=== PATIENT | female | born 1950 | race Caucasian/White ===

== ENCOUNTER → 2017-02-10 | Outpatient (REF) | payer MEDICARE, OTHER ==
[~2017-02-10] MED LIST: /ACETCOD3T OR; /PANT40TA OR; ACET65TA OR; ALBUTEROL INH; DULO20CA OR; HYDR25TA6 OR; IMIT50TA OR; LUNE2TAB OR; SOMA350T OR; TRAM50TA2 OR; WARF1TAB OR; XANA0.25 OR
== END ==
LOC: M LAB REF 17:42
PROVIDERS: ATTEND Nurse Practitioner Adult Health
DX: E83.52 Hypercalcemia (principal)

== ENCOUNTER → 2017-02-25 | Outpatient (CLI) | payer MEDICARE, OTHER ==
[~2017-02-25] MED LIST changes: +ALBU17IN; +ATEN25TA PO; +LUNE3TAB36 PO; +XARE20TA
--- NOTE | 2017-02-25 13:59 | REP ---
PARATHYROID NUCLEAR SCINTIGRAPHY WITH SPECT : HISTORY: Hyperparathyroidism. TECHNIQUE: 25.6 mCi of technetium 99m sestamibi is injected and 15-minute and 3-hour delayed planar images are acquired. In addition, a SPECT acquisition is acquired and axial coronal and sagittal imaging planes are reformatted. SCINTIGRAPHIC FINDINGS: The initial 15-minute images demonstrate normal salivary gland and thyroid uptake. The 3-hour delayed images demonstrate washout of the thyroid uptake with no retained soft-tissue neck or mediastinal abnormal focus to suggest a parathyroid adenoma. SPECT images show no additional finding. IMPRESSION: Negative parathyroid nuclear scintigraphy with SPECT imaging. Signed by Juan Nielsen MD 02/25/2017 03:34 P
== END ==
LOC: M RAD 09:19
PROVIDERS: ATTEND Nurse Practitioner Adult Health
DX: E21.3 Hyperparathyroidism, unspecified (principal)
CPT/HCPCS: 78070; 78803; A9500

== ENCOUNTER 2017-03-12 14:26 | Emergency (ER) | payer MEDICARE, OTHER ==
[~2017-03-12] VITALS: Ht 177.8 cm; Wt 100.0 kg
[~2017-03-12 14:26] MED LIST changes: -ALBU17IN; -ATEN25TA PO; -LUNE3TAB36 PO; -XARE20TA
[2017-03-12] MEDS ORDERED: XARE20TA (14:57)
[2017-03-12] MEDS ORDERED: ALBU17IN (14:57)
[2017-03-12] MEDS ORDERED: METOPROLOL 5 MG/5 ML VIAL IV SCH (15:00)
--- NOTE | 2017-03-12 15:17 | REP ---
PORTABLE CHEST X-RAY: Sitting AP view. HISTORY: Chest pain. COMPARISON STUDY: May 10, 2013. FINDINGS: EKG monitoring electrodes overlie the chest. The patient is status post ventral cervical discectomy and fusion plating. Heart is not felt to be enlarged. Pulmonary vasculature is not increased. Pleural angles are sharp. Lung breen are clear. IMPRESSION: No acute disease. Signed by Juan Nielsen MD 03/12/2017 04:19 P
[2017-03-12] MEDS ORDERED: LUNE3TAB36 PO (15:28)
[2017-03-12] MEDS ORDERED: ALPRAZolam 0.25 MG TAB PO ONE (16:00)
[2017-03-12 16:11] LABS: BASO # 0.1 K/mm3 (0.0-0.2); BASO % 1.4 % (0.0-1.0); EOS # 0.1 K/mm3 (0.0-0.50); EOS % 1.1 % (0.0-3.0); INR 1.02; LARGE UNSTAINED CELL # 0.2 K/mm3 (0.0-0.4); LARGE UNSTAINED CELL % 1.9 % (0.0-4.0); LYMPH # 2.3 K/mm3 (1.5-4.5); LYMPH % 24.6 % (24.0-44.0); MEAN CORPUSCULAR HEMOGLOBIN 30.9 pg (27.0-33.0); MEAN CORPUSCULAR HGB CONC 33.9 g/dl (32.0-36.5); MEAN CORPUSCULAR VOLUME 91.2 fl (80.0-96.0); MONO # 0.5 K/mm3 (0.0-0.8); MONO % 5.5 % (0.0-5.0); NEUTROPHILS # 5.8 K/mm3 (1.8-7.7); NEUTROPHILS % 65.5 % (36.0-66.0); PLATELET COUNT, AUTOMATED 306 k/mm3 (150-450); RED CELL DISTRIBUTION WIDTH 13.1 % (11.5-14.5); WHITE BLOOD COUNT 8.8 K/mm3 (4.0-10.0)
[2017-03-12 16:22] LABS: ANION GAP 11 MEQ/L (8-16); BLOOD UREA NITROGEN 15 MG/DL (7-18); CALCIUM LEVEL 10.2 MG/DL (8.8-10.2); CARBON DIOXIDE LEVEL 27 MEQ/L (21-32); CHLORIDE LEVEL 97 MEQ/L (98-107); FREE T4 1.02 NG/DL (0.76-1.46); GLOMERULAR FILTRATION RATE 59.1 (>45); GLUCOSE, FASTING 112 MG/DL (80-110); POTASSIUM SERUM 3.3 MEQ/L (3.5-5.1); SODIUM LEVEL 135 MEQ/L (136-145)
[2017-03-12] MEDS ORDERED: POTASSIUM CHLORIDE 10 MEQ SR TABLET PO ONE (17:00)
[2017-03-12] MEDS ORDERED: ISOVUE-370 76% 100ML VIAL (Q9967) As Ordered ONE (17:35)
[2017-03-12] MEDS ORDERED: ATEN25TA PO (20:18)
[2017-03-12 20:39] VITALS: BP 123/75
--- NOTE | 2017-03-12 21:35 | REP ---
CT ANGIOGRAM CHEST: HISTORY: Chest pain. CONTRAST: Isovue-370 100 mL. There are no filling defects in the main , right and left pulmonary arteries or their branches. A calcified granuloma is present in the left lower lobe. The right lung is clear. There is no pleural effusion. There is no mediastinal mass. A 2 cm hypodensity is present in the liver. This most likely represents a cyst. A 2.7 cm cyst is present in the right kidney. IMPRESSION: There is no pulmonary embolism. Signed by Fernando Fuentes MD 03/13/2017 07:56 A
--- NOTE | 2017-03-12 21:36 | ECGEPIP ---
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
--- NOTE | 2017-03-12 21:37 | ECGEPIP ---
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
== END 2017-03-12 21:12 | disposition home or self-care (01) ==
LOC: M ED 14:26 → EDBD 14:26 → M ED 21:12
DX: I48.91 Unspecified atrial fibrillation (principal); Z86.711 Personal history of pulmonary embolism; E11.9 Type 2 diabetes mellitus without complications; I10 Essential (primary) hypertension; D64.9 Anemia, unspecified; K21.9 Gastro-esophageal reflux disease without esophagitis; M54.5 Low back pain; A69.20 Lyme disease, unspecified; Z79.02 Long term (current) use of antithrombotics/antiplatelets; Z79.899 Other long term (current) drug therapy
CPT/HCPCS: 71010; 71275; 80048; 82550; 82553; 83880; 84439; 84443; 84484; 85025; 85610; 85730; 93005; 93041; 94760; 96374; 99285; Q9967

== ENCOUNTER → 2017-03-27 | Outpatient (CLI) | payer MEDICARE, OTHER ==
[~2017-03-27] MED LIST changes: +ALBU17IN; +ATEN25TA PO; +LUNE3TAB36 PO; +XARE20TA
== END ==
LOC: M LAB 11:31
PROVIDERS: ATTEND Internal Medicine Cardiovascular Disease
DX: R07.2 Precordial pain (principal)

== ENCOUNTER → 2017-04-14 | Outpatient (REF) | payer MEDICARE, OTHER ==
[2017-04-17 00:07] LABS: Lyme Disease IgG/IgM Antibodie <0.91 ISR (0.00-0.90); Lyme Disease IgM Ab Quantitati <0.80 index (0.00-0.79)
== END ==
LOC: M LAB REF 17:30
PROVIDERS: ATTEND Nurse Practitioner Adult Health
DX: Z11.8 Encounter for screening for other infectious and parasitic diseases (principal)

== ENCOUNTER → 2017-06-18 | Outpatient (REF) | payer MEDICARE, OTHER | LOC: M LAB REF 16:25 | PROVIDERS: ATTEND Nurse Practitioner Adult Health | DX: E21.3 Hyperparathyroidism, unspecified (principal) ==

== ENCOUNTER → 2018-04-08 | Outpatient (CLI) | payer MEDICARE, OTHER ==
[~2018-04-08] MED LIST changes: -/ACETCOD3T OR; -/PANT40TA OR; -ACET65TA OR; -ALBU17IN; -ALBUTEROL INH; -ATEN25TA PO; -DULO20CA OR; -HYDR25TA6 OR; -IMIT50TA OR; +ISOVUE-370 76% 100ML VIAL (Q9967) As Ordered; -LUNE2TAB OR; -LUNE3TAB36 PO; -SOMA350T OR; -TRAM50TA2 OR; -WARF1TAB OR; -XANA0.25 OR; -XARE20TA
== END ==
LOC: M RAD 16:22
DX: R06.02 Shortness of breath (principal); I77.810 Thoracic aortic ectasia; J84.10 Pulmonary fibrosis, unspecified; I51.7 Cardiomegaly; K76.89 Other specified diseases of liver
CPT/HCPCS: Q9967

== ENCOUNTER → 2018-05-12 | Outpatient (REF) | payer MEDICARE, OTHER ==
[2018-05-12 20:32] LABS: LIPASE 74 U/L (73-393)
[2018-05-12 20:32] LABS: AMYLASE 42 U/L (25-115)
[2018-05-17 00:08] LABS: ANTI-SACCHAROMYCES CEREV. IgA <20.0 Units (0.0-24.9); ANTI-SACCHAROMYCES CEREV. IgG 32.3 Units (0.0-24.9)
== END ==
LOC: M LAB REF 18:54
DX: R10.9 Unspecified abdominal pain (principal); R19.7 Diarrhea, unspecified
CPT/HCPCS: 82150

== ENCOUNTER 2018-06-28 10:02 | Day surgery (SDC) | payer MEDICARE, OTHER ==
[2018-06-28] MEDS: NS 1,000 ML IV (06:00)
[2018-06-28] MEDS ORDERED: fentaNYL 100 MCG/2 ML INJECTION (J3010) As Ordered (12:20)
[2018-06-28] MEDS ORDERED: PROPOFOL 200 MG/20 ML VIAL As Ordered ×2 (12:21→12:56)
[2018-06-28] MEDS ORDERED: LIDOCAINE 2% INJ 100 MG/5 ML SDV (FOR ANES.) As Ordered (12:21)
== END 2018-06-28 14:00 | disposition home or self-care (01) ==
LOC: M OPP 10:02
DX: D12.3 Benign neoplasm of transverse colon (principal); K63.5 Polyp of colon; K57.30 Diverticulosis of large intestine without perforation or abscess without bleeding; R10.30 Lower abdominal pain, unspecified; R19.7 Diarrhea, unspecified; R63.4 Abnormal weight loss; K22.8 Other specified diseases of esophagus; K44.9 Diaphragmatic hernia without obstruction or gangrene; K31.89 Other diseases of stomach and duodenum; I10 Essential (primary) hypertension; D64.9 Anemia, unspecified; D41.9 Neoplasm of uncertain behavior of unspecified urinary organ; K21.9 Gastro-esophageal reflux disease without esophagitis; G43.909 Migraine, unspecified, not intractable, without status migrainosus; I48.91 Unspecified atrial fibrillation; M12.9 Arthropathy, unspecified; Z79.891 Long term (current) use of opiate analgesic; Z79.899 Other long term (current) drug therapy; Z90.89 Acquired absence of other organs; Z88.5 Allergy status to narcotic agent; Z90.711 Acquired absence of uterus with remaining cervical stump
CPT/HCPCS: 45385

== ENCOUNTER → 2019-01-05 | Outpatient (CLI) | payer MEDICARE, OTHER ==
[~2019-01-05] MED LIST changes: +ACET1TAB16 OR; +ACET1TAB16 PO; +ACET65TA OR; +ALBU17IN; +ALBUTEROL INH; +ATEN25TA PO; +ATEN50TA2 PO; +ATOR40TA75 PO; +CYMB1CAP4 OR; +HYDR12CA PO; +HYDR25TA6 OR; +IMIT50TA OR; +IMIT50TA PO; -ISOVUE-370 76% 100ML VIAL (Q9967) As Ordered; +LIDO5CRE6 EX; +LUNE2TAB OR; +LUNE3TAB36 PO; +MULT1TAB10 PO; +ONDA4SOL PO; +PANT40TA3 PO; +PROT1TAB2 OR; +SOMA350T OR; +SOMA350T PO; +TRAM50TA2 OR; +VENTAER INH; +VITA200016 PO; +VOLT1GEL15 TOP; +WARF1TAB OR; +XANA0.25 OR; +XANA0.25 PO; +XARE20TA; +XARE20TA PO
[2019-01-05 10:22] LABS: HEMATOCRIT 46.5 % (36.0-47.0); HEMOGLOBIN 15.2 g/dl (12.0-15.5); MEAN CORPUSCULAR HEMOGLOBIN 30.9 pg (27.0-33.0); MEAN CORPUSCULAR HGB CONC 32.7 g/dl (32.0-36.5); MEAN CORPUSCULAR VOLUME 94.5 fl (80.0-96.0); PLATELET COUNT, AUTOMATED 229 10^3/uL (150-450); RED BLOOD COUNT 4.92 10^6/uL (4.00-5.40); WHITE BLOOD COUNT 6.6 10^3/uL (4.0-10.0)
[2019-01-05 10:52] LABS: ALBUMIN 4.4 GM/DL (3.2-5.2); ALT/SGPT 30 U/L (12-78); BILIRUBIN,TOTAL 0.6 MG/DL (0.2-1.0); BLOOD UREA NITROGEN 20 MG/DL (7-18); CALCIUM LEVEL 9.3 MG/DL (8.8-10.2); CARBON DIOXIDE LEVEL 32 MEQ/L (21-32); CHLORIDE LEVEL 98 MEQ/L (98-107); CHOLESTEROL LEVEL 209 MG/DL (<200); CHOLESTEROL RISK RATIO 2.548 (<5); CREATININE FOR GFR 0.98 MG/DL (0.55-1.30); GLOMERULAR FILTRATION RATE > 60.0 (>45); GLUCOSE, FASTING 110 MG/DL (70-100); HDL CHOLESTEROL 82 MG/DL (>40); LDL CHOLESTEROL 102 MG/DL (<100); NON-HDL-C 127 MG/DL; POTASSIUM SERUM 3.6 MEQ/L (3.5-5.1); SODIUM LEVEL 138 MEQ/L (136-145); THYROXINE (T4) 7.1 UG/DL (4.5-12.0); TOTAL PROTEIN 7.6 GM/DL (6.4-8.2); TRIGLYCERIDES LEVEL 125 MG/DL (<150)
== END ==
LOC: M LAB 09:23
PROVIDERS: ATTEND Physician Assistant
DX: I48.0 Paroxysmal atrial fibrillation (principal)

== ENCOUNTER → 2019-02-09 | Outpatient (REF) | payer MEDICARE, OTHER ==
[2019-02-09 14:25] LABS: AMYLASE 34 U/L (25-115); LIPASE 58 U/L (73-393)
== END ==
LOC: M LAB REF 12:56
PROVIDERS: ATTEND Nurse Practitioner Adult Health
DX: R10.11 Right upper quadrant pain (principal)

== ENCOUNTER 2019-05-15 12:07 | Inpatient (IN) | payer MEDICARE, OTHER ==
[~2019-05-15] VITALS: Ht 177.8 cm; Wt 82.7 kg
[2019-05-15 12:52] LABS: BASO # 0.1 10^3/uL (0.0-0.2); BASO % 0.8 % (0.0-1.0); EOS # 0.1 10^3/uL (0.0-0.5); EOS % 1.2 % (0.0-3.0); HEMATOCRIT 46.3 % (36.0-47.0); HEMOGLOBIN 15.7 g/dl (12.0-15.5); LYMPH # 1.5 10^3/uL (1.5-5.0); LYMPH % 24.1 % (24.0-44.0); MEAN CORPUSCULAR HEMOGLOBIN 30.8 pg (27.0-33.0); MEAN CORPUSCULAR HGB CONC 33.9 g/dl (32.0-36.5); MEAN CORPUSCULAR VOLUME 90.8 fl (80.0-96.0); MONO # 0.3 10^3/uL (0.0-0.8); MONO % 5.1 % (0.0-5.0); NEUTROPHILS # 4.1 10^3/uL (1.5-8.5); NEUTROPHILS % 68.6 % (36.0-66.0); PLATELET COUNT, AUTOMATED 239 10^3/uL (150-450)
[2019-05-15 13:04] LABS: INR 1.42; PROTHROMBIN TIME 17.1 SECONDS (11.8-14.0)
[2019-05-15 13:25] LABS: BLOOD UREA NITROGEN 28 MG/DL (7-18); CARBON DIOXIDE LEVEL 27 MEQ/L (21-32); CHLORIDE LEVEL 99 MEQ/L (98-107); CK-MB VALUE MASS 1.7 NG/ML (<3.6); CPK CREATINE PHOSPHOKINASE 161 U/L (26-192); CREATININE FOR GFR 1.04 MG/DL (0.55-1.30); GLOMERULAR FILTRATION RATE 55.9 (>45); GLUCOSE, FASTING 114 MG/DL (70-100); MB/CK RELATIVE INDEX 1.06 (< OR =4); NT-PRO BNP 3312 PG/ML (<125); POTASSIUM SERUM 4.1 MEQ/L (3.5-5.1); SODIUM LEVEL 137 MEQ/L (136-145); TROPONIN I < 0.02 NG/ML (< 0.10)
[2019-05-15] MEDS ORDERED: ISOVUE-370 76% 100ML VIAL (Q9967) As Ordered ONE (13:35)
--- NOTE | 2019-05-15 13:44 | REP ---
CHEST, SINGLE VIEW: There is no evidence of acute infiltrate. No pleural effusion is seen. The heart is normal in size. The mediastinal silhouette is unremarkable. The visualized osseous structures are intact. There are degenerative changes of the spine. IMPRESSION: No acute pulmonary disease. Electronically Signed by Parker Johnston MD 05/15/2019 04:21 P
[2019-05-15 14:04] LABS: ALBUMIN 4.1 GM/DL (3.2-5.2); ALT/SGPT 33 U/L (12-78); BILIRUBIN,DIRECT 0.1 MG/DL (0.0-0.2); BILIRUBIN,TOTAL 0.9 MG/DL (0.2-1.0); TOTAL PROTEIN 7.7 GM/DL (6.4-8.2)
--- NOTE | 2019-05-15 14:20 | REP ---
CT of the brain without IV contrast: Comparison is 12/30/2011. There is no subdural or epidural hematoma. There is no intraparenchymal hemorrhage. There is no edema, mass effect or midline shift. The sulci and ventricles are mildly enlarged compatible with mild diffuse volume loss. This is not significantly changed. The cortical stripe is unremarkable. The visualized paranasal sinuses are unremarkable. 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 Impression: There is no subdural hematoma. There is no hemorrhage, acute infarct or mass. Mild diffuse volume loss, unchanged. Chronic sclerosis of the left mastoid air cells as described. Electronically Signed by Parker Thrasher MD 05/15/2019 02:12 P
--- NOTE | 2019-05-15 14:31 | REP ---
CT of the chest with IV contrast, CT pulmonary artery angiography: There are no emboli in the pulmonary trunk or central pulmonary arteries. There are no emboli in the pulmonary lobe or segment branches. There are no infiltrates or pleural effusions. There are no lung nodules or masses. There is a left lower lobe calcified granuloma. There is no mediastinal, hilar or axillary lymph node enlargement. The thoracic aorta is unremarkable except that the ascending thoracic aorta is dilated measuring 4.1 mm in diameter. There is pectus excavatum and the the heart is compressed by the sternum and spine. This is unchanged. There is a 2.9 cm cyst in the dome of the liver, not significantly changed. There are a few other tiny hepatic cysts, unchanged. There is a 3.2 cm right renal upper pole cyst, not significantly changed. Impression: There are no pulmonary emboli. There are no infiltrates, effusions, masses or nodules. No adenopathy. There is pectus excavatum with the heart compressed by a the sternum and spine. Electronically Signed by Parker Thrasher MD 05/15/2019 02:23 P
[2019-05-15 16:21] LABS: CK-MB VALUE MASS 1.9 NG/ML (<3.6); CPK CREATINE PHOSPHOKINASE 142 U/L (26-192); MB/CK RELATIVE INDEX 1.34 (< OR =4); TROPONIN I < 0.02 NG/ML (< 0.10)
[2019-05-15] MEDS ORDERED: CYCL5TAB PO (16:36)
[2019-05-15] MEDS ORDERED: DIGOXIN INJ 0.5 MG/2 ML AMP (J1160) IV STA (17:40)
[2019-05-15] MEDS ORDERED: METOCLOPRAMIDE INJ 10MG/2ML VIAL (J2765) As Ordered ONE (17:44)
[2019-05-15] MEDS ORDERED: METOCLOPRAMIDE INJ 10MG/2ML VIAL (J2765) IV ONE (17:45)
[2019-05-15] MEDS ORDERED: CYCLOBENZAPRINE 5MG TABLET PO PRN (19:00)
[2019-05-15] MEDS ORDERED: ACETAMINOPHEN TAB 650MG DOSE (2X325MG) PO ONE (19:00)
[2019-05-15] MEDS ORDERED: ACETAMINOPH W/CODEINE #3 TAB UD PO PRN (19:00)
[2019-05-15] MEDS ORDERED: ALBUTEROL 90 MCG/ACT 8GM HFA INHALER INH PRN (19:00)
--- NOTE | 2019-05-15 19:03 | HPEPDOC ---
General Date of Admission 05/15/19 Date of Service: May 15, 2019 Primary Care Physician: Aminta Allred Attending Physician: ADALID MOLINA DO Chief Complaint The patient is a 69-year-old female admitted with a reason for visit of Chest Pain/Weakness. Source: Patient Timing/Duration: Week(s) Severity: Mild History of Present Illness 69 years old female with past medical history over hypertension, paroxysmal atrial fibrillation on Xarelto, pulmonary emboli in 2007 in 2009, patient on anticoagulation since 2007, presented hospital with dizziness, lightheadedness and pressure feeling in her chest. Patient stated that for past few weeks she has increased lightheadedness and dizziness. In February 2019 she developed syncope, most likely orthostatic due to preceding diarrhea. She noticed that for past few weeks when she stood up she has increased lightheadedness. 4-5 days ago the dose of atenolol was increased from 50 to 100 after that patient noticed increased weakness she said '' I could barely walk''. Also note echo was done recently in March 2019 and showed normal ejection fraction, mild dilatation of the proximal ascending aorta 4.1 cm, very mild aortic valve sclerosis. Patient denies fever, chills, nausea, vomiting, diarrhea or dysuria. In emergency room patient was fou nd to have BNP 3392, negative troponin. EKG showed atrial fibrillation. Home Medications Scheduled Atenolol (Atenolol) 50 Mg Tab, 50 MG PO DAILY, (Reported) Atorvastatin Calcium (Atorvastatin Calcium) 40 Mg Tab, 40 MG PO DAILY, (Reported) TAKES AT NOON Cholecalciferol (Vitamin D3) (Vitamin D3) 2,000 Unit Cap, 2,000 UNIT PO DAILY, (Reported) TAKES AT NOON Eszopiclone (Lunesta) 3 Mg Tab, 3 MG PO QHS, (Reported) PT CAN ONLY TAKE BLUE GENERIC TABLET OR BRAND NAME Hydrochlorothiazide (Hydrochlorothiazide) 12.5 Mg Cap, 12.5 MG PO DAILY, (Reported) Rivaroxaban (Xarelto) 20 Mg Tab, 20 MG PO QPM, (Reported) Scheduled PRN Acetaminophen with Codeine (Acetaminophen-Cod #3 Tablet) 1 Tab Tab, 1 TAB PO Q6H PRN for PAIN, (Reported) Albuterol Sulfate (Ventolin Hfa) 108 Mcg/Act Aer, 2 PUFFS INH QID PRN for SOB/WHEEZING, (Reported) Alprazolam (Xanax) 0.25 Mg Tab, 0.25 MG PO TID PRN for ANXIETY/AGITATION, (Reported) Cyclobenzaprine HCl (Cyclobenzaprine HCl) 5 Mg Tablet, 5 MG PO TID PRN for MUSCLE SPASMS, (Reported) Diclofenac Sodium (Voltaren) 1 % Gel, 1 APLCT TOP BID PRN for BACK PAIN, (Reported) Ondansetron HCl (Ondansetron HCl) 4 Mg/5 Ml Melanie, 4 MG PO QID PRN for NAUSEA, (Reported) Sumatriptan Succinate (Imitrex) 50 Mg Tab, 50 MG PO PRN PRN for MIGRAINE, (Reported) Allergies Coded Allergies: morphine (Verified Adverse Reaction, Intermediate, makes her crazy, 05/15/19) Past Medical History Medical History Atrial fibrillation, history of pulmonary emboli in 2007 and 1999 and most likely associated with preceding surgeries, hypertension Surgical History Neck vertebral surgery, parathyroidectomy, , hysterectomy Family History Mother from lung cancer, father had COPD Social History * Smoker: Denies Alcohol: Denies Drugs: denies A-FIB/CHADSVASC A-FIB History Current/History of A-Fib/PAF?: Yes Current PO Anticoag Therapy: Yes Review of Systems Constitutional: Reports: Weakness, Fatigue; Denies: Chills, Fever Eyes: Denies: Pain, Vision change ENT: Denies: Head Aches, Ear Pain Skin: Denies: Rash, Lesions Pulmonary: Denies: Dyspnea, Cough Cardiovascular: Reports: Edema; Denies: Chest Pain, Palpitations Gastrointestinal: Denies: Nausea, Vomiting Genitourinary: Denies: Dysuria, Frequency Hematologic: Denies: Bruising Endocrine: Denies: Polydipsia, Polyphagia Musculoskeletal: Reports: Back Pain; Denies: Neck Pain Neurological: Denies: Weakness Psych: Reports: Mood Normal, Anxiety Physical Examination General Exam: Positive: Alert, Cooperative Eye Exam: Positive: PERRLA, Conjunctiva & lids normal ENT Exam: Positive: Atraumatic, Mucous membr. moist/pink Neck Exam: Positive: Supple, JVD (mild) Chest Exam: Positive: Diminished Heart Exam: Positive: Irregular Rhythm Telemetry: Positive: Atrial fibrillation Abdomen Exam: Positive: Normal bowel sounds Extremity Exam: Negative: Cyanosis Skin Exam: Positive: Nl turgor and temperature Neuro Exam: Positive: Normal Gait, Strength at 5/5 X4 ext, Cranial Nerves 3-12 NL Psych Exam: Positive: Mental status NL Vital Signs Vital Signs Date Time Temp Pulse Resp B/P (MAP) Pulse Ox O2 Delivery O2 Flow Rate FiO2 05/15/19 17:51 100 05/15/19 17:37 169/98 (121) 99 05/15/19 12:08 96.9 18 Room Air Laboratory Data Labs 24H Laboratory Tests 2 05/15/19 12:38: Immature Granulocyte % (Auto) 0.2, White Blood Count 6.0, Red Blood Count 5.10, Hemoglobin 15.7H, Hematocrit 46.3, Mean Corpuscular Volume 90.8, Mean Corpuscular Hemoglobin 30.8, Mean Corpuscular Hemoglobin Concent 33.9, Red Cell Distribution Width 12.2, Platelet Count 239, Neutrophils (%) (Auto) 68.6H, Lymphocytes (%) (Auto) 24.1, Monocytes (%) (Auto) 5.1H, Eosinophils (%) (Auto) 1.2, Basophils (%) (Auto) 0.8, Neutrophils # (Auto) 4.1, Lymphocytes # (Auto) 1.5, Monocytes # (Auto) 0.3, Eosinophils # (Auto) 0.1, Basophils # (Auto) 0.1, Nucleated Red Blood Cells % (auto) 0.0, Prothrombin Time 17.1H, Prothromb Time International Ratio 1.42, Anion Gap 11, Glomerular Filtration Rate 55.9, Calcium Level 10.0, Aspartate Amino Transf (AST/SGOT) 44H, Alanine Aminotransferase (ALT/SGPT) 33, Alkaline Phosphatase 96, Total Bilirubin 0.9, Direct Bilirubin 0.1, Total Creatine Kinase 161, Creatine Kinase MB 1.7, Creatine Kinase MB Relative Index 1.06, Troponin I < 0.02, LX-Csg-K-Type Natriuretic Peptide 3312H, Total Protein 7.7, Albumin 4.1, Albumin/Globulin Ratio 1.14, Thyroid Stimulating Hormone (TSH) 1.150 05/15/19 15:43: Total Creatine Kinase 142, Creatine Kinase MB 1.9, Creatine Kinase MB Relative Index 1.34, Troponin I < 0.02 CBC/BMP Laboratory Tests 05/15/19 12:38 Red Blood Count 5.10, Mean Corpuscular Volume 90.8, Mean Corpuscular Hemoglobin 30.8, Mean Corpuscular Hemoglobin Concent 33.9, Red Cell Distribution Width 12.2, Neutrophils (%) (Auto) 68.6 H, Lymphocytes (%) (Auto) 24.1, Monocytes (%) (Auto) 5.1 H, Eosinophils (%) (Auto) 1.2, Basophils (%) (Auto) 0.8, Neutrophils # (Auto) 4.1, Lymphocytes # (Auto) 1.5, Monocytes # (Auto) 0.3, Eosinophils # (Auto) 0.1, Basophils # (Auto) 0.1 Assessment/Plan 69 years old female with past medical history over hypertension, paroxysmal atrial fibrillation on Xarelto, pulmonary emboli in 2007 in 2009, patient on anticoagulation since 2007, presented hospital with dizziness, lightheadedness and pressure feeling in her chest. Patient stated that for past few weeks she has increased lightheadedness and dizziness. Patient was found to have increased BNP, atrial fibrillation and legs swelling. Problems (1) Lightheadedness Problem Text: Most likely secondary to increased dose of atenolol 100 mg, atrial fibrillation, acute CHF I decreased the dose of beta rajiv, load with digoxin (2) Atrial fibrillation Status: Acute Problem Text: Rate controlled, I changed atenolol 100 mg to metoprolol tartrate [address] Seals suggested 0.125 digoxin every 6 for next 24 hours Continue anticoagulation by mouth We'll check magnesium, phosphorus (3) Acute exacerbation of CHF (congestive heart failure) Problem Text: Patient has bilateral leg swelling +1, mild JVD and BNP 3392. Chest x-ray shows no cardiomegaly. Orthostatic vital signs positive, most likely patient developed acute CHF secondary to atrial fibrillation and bradycardia secondary to increase the dose of atenolol I will give her gentle diuresis Strict I's and O's Plan / VTE VTE Prophylaxis Ordered?: Yes ADALID MOLINA DO May 15, 2019 19:03
[2019-05-15] MEDS ORDERED: FUROSEMIDE 20 MG/2 ML VIAL (J1940) IV ONE (19:30)
[2019-05-15] MEDS: ONDANSETRON 4 MG TAB (S0181) PO SCH (19:41)
[2019-05-15 20:09] LABS: CPK CREATINE PHOSPHOKINASE 98 U/L (26-192); MAGNESIUM LEVEL 1.5 MG/DL (1.8-2.4); MB/CK RELATIVE INDEX 2.04 (< OR =4); PHOSPHORUS LEVEL 3.1 MG/DL (2.5-4.9); TROPONIN I < 0.02 NG/ML (< 0.10)
[2019-05-15] MEDS: RAMELTEON 8 MG TAB (ROZEREM) PO SCH (21:00)
[2019-05-15] MEDS ORDERED: METOPROLOL TART 25 MG TABLET PO SCH (21:00)
[2019-05-15 21:13] VITALS: BP 132/89
[2019-05-15] MEDS: METOPROLOL TART 25 MG TABLET PO SCH (21:15)
[2019-05-15 22:00] VITALS: BP 131/89
[2019-05-15] MEDS: SUMAtriptan SUCCINATE 25 MG TAB PO PRN (22:21)
[2019-05-16] MEDS ORDERED: DIGOXIN INJ 0.5 MG/2 ML AMP (J1160) IV SCH
[2019-05-16] MEDS ORDERED: RIVAROXABAN 20 MG TAB (XARELTO) PO ONE (00:30)
[2019-05-16 01:36] VITALS: BP 127/78
[2019-05-16] MEDS: DIGOXIN 0.125 MG TAB PO SCH ×3 (01:45→12:47)
[2019-05-16 03:31] LABS: CK-MB VALUE MASS 2.2 NG/ML (<3.6); CPK CREATINE PHOSPHOKINASE 108 U/L (26-192); FREE T3 3.3 PG/ML (2.2-4.0); FREE T4 1.13 NG/DL (0.76-1.46); MB/CK RELATIVE INDEX 2.04 (< OR =4); TROPONIN I < 0.02 NG/ML (< 0.10)
--- NOTE | 2019-05-16 04:54 | ECGEPIP ---
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
--- NOTE | 2019-05-16 05:00 | ECGEPIP ---
[facility] - ED Test Date: 2019-05-15 Pat Name: BETHEL JAMES Department: Room: - Gender: Female Tool Liaison: PMO : 1950 Requested By: MANNIE Preciado Order Number: [id number] Reading MD: Behzad Pacheco Measurements Intervals [place] Rate: 69 P: [place]: 0 QRS: 10 QRSD: 97 T: -63 QT: 403 QTc: 432 Interpretive Statements ATRIAL FIBRILLATION POOR R WAVE PROGRESSION MODERATE T-WAVE ABNORMALITY, CONSIDER ANTEROLATERAL ISCHEMIA MODERATE T-WAVE ABNORMALITY, CONSIDER INFERIOR ISCHEMIA SIMILAR TO PRIOR ON SAME DATE Electronically Signed on 05-16-2019 4:59:36 EDT by Behzad Pacheco
[2019-05-16] MEDS: ONDANSETRON 4 MG TAB (S0181) PO SCH ×2 (05:40→20:22)
[2019-05-16 06:00] VITALS: BP 118/74
[2019-05-16 06:36] LABS: THYROID STIMULATING HORMONE 3.2 uIU/ML (0.358-3.740)
[2019-05-16 06:55] VITALS: BP 106/69
[2019-05-16] MEDS: ALPRAZolam 0.25 MG TAB PO PRN (07:08)
[2019-05-16 08:37] LABS: HEMATOCRIT 45.4 % (36.0-47.0); HEMOGLOBIN 15.3 g/dl (12.0-15.5); MEAN CORPUSCULAR HEMOGLOBIN 30.5 pg (27.0-33.0); MEAN CORPUSCULAR HGB CONC 33.7 g/dl (32.0-36.5); MEAN CORPUSCULAR VOLUME 90.4 fl (80.0-96.0); PLATELET COUNT, AUTOMATED 257 10^3/uL (150-450); RED BLOOD COUNT 5.02 10^6/uL (4.00-5.40); WHITE BLOOD COUNT 7.8 10^3/uL (4.0-10.0)
[2019-05-16 08:39] LABS: CALCIUM LEVEL 9.5 MG/DL (8.8-10.2); CREATININE FOR GFR 1.21 MG/DL (0.55-1.30)
[2019-05-16] MEDS: MAG SULF 1GM/100ML (MAG RUN) 1 GM in APPROPRIATE DILUENT 1 EA IV SCH ×2 (09:15→10:36)
[2019-05-16] MEDS: hydroCHLOROthiazide 12.5 MG CAPSULE PO SCH (09:15)
[2019-05-16] MEDS: METOPROLOL TART 25 MG TABLET PO SCH ×3 (09:17→20:22)
[2019-05-16 10:43] LABS: CK-MB VALUE MASS 2.3 NG/ML (<3.6); CPK CREATINE PHOSPHOKINASE 122 U/L (26-192); MB/CK RELATIVE INDEX 1.89 (< OR =4); TROPONIN I < 0.02 NG/ML (< 0.10)
[2019-05-16] MEDS ORDERED: POTASSIUM CHLORIDE 10 MEQ SR TABLET PO ONE ×2 (12:00→14:00)
[2019-05-16] MEDS: ATORVASTATIN 20 MG TAB PO SCH (12:45)
[2019-05-16] MEDS: VITAMIN D 1,000 INTERNATIONAL UNITS TABLET PO SCH (12:45)
[2019-05-16 14:00] VITALS: BP 105/64
[2019-05-16] MEDS: SUMAtriptan SUCCINATE 25 MG TAB PO PRN (14:53)
[2019-05-16] MEDS: RIVAROXABAN 20 MG TAB (XARELTO) PO SCH (17:26)
[2019-05-16] MEDS: [UNRECOGNIZED DRUG - OTHER] PO SCH (20:23)
[2019-05-16] MEDS: RAMELTEON 8 MG TAB (ROZEREM) PO SCH (20:23)
--- NOTE | 2019-05-16 20:42 | IPNPDOC ---
Date Seen The patient was seen on 05/16/19. Progress Note SUBJECTIVE: Patient reports some chills overnight but otherwise doing fine lying still. States that at home her symptoms occurred with exertion, feeling very weak with tingling in her extremities and attributed to her Afib. Those symptoms had resolved since admission. OBJECTIVE PHYSICAL EXAMINATION: VITAL SIGNS: Please see below. General: No acute distress, Alert Eyes: Normal sclera, EOMI, SHAMAR HENT: Atraumatic, neck supple, moist mucous membranes Cardiovascular: Normal rate Pulmonary: Clear to auscultation b/l, no wheezing GI: Soft, nontender, nondistended Skin: Warm and dry Neuro: CN grossly intact. No focal deficits. Strengths equal b/l. Psych: oriented x 3 LABORATORY DATA, IMAGING STUDIES, MICROBIOLOGY: Please see below. DVT prophylaxis ordered?: Xarelto ASSESSMENT AND PLAN: 1. pAfib - rate controlled. - c/w home med and Xarelto. - Was on Atenolol 50 mg but increased to 100 mg recently and reportedly did not tolerate and became very weak. - On metoprolol currently along with Digoxin. Cardiology consulted. 2. Lightheadedness - possibly 2/2 increased dose of BB along with Afib. - Now with controlled rate and change in meds, will try PT to see if patient is more stable. 3. CHF - Mild b/l swelling along with BNP 3392. - Recent ECHO in march 2019 showed normal EF. - c/w gentle diuresis. VS, I&O, 24H, Fishbone Vital Signs/I&O Vital Signs Date Time Temp Pulse Resp B/P (MAP) Pulse Ox O2 Delivery O2 Flow Rate FiO2 05/16/19 20:22 72 121/75 05/16/19 14:00 98.0 18 97 05/15/19 12:08 Room Air I&O- Last 24 Hours up to 6 AM 05/16/19 06:00 Intake Total 355 ml Output Total 600 ml Balance -245 ml Laboratory Data 24H LABS Laboratory Tests 2 05/16/19 02:54: Total Creatine Kinase 108, Creatine Kinase MB 2.2, Creatine Kinase MB Relative Index 2.04, Troponin I < 0.02, Free Thyroxine 1.13, Free Triiodothyronine 3.3 05/16/19 05:38: Nucleated Red Blood Cells % (auto) 0.0, Anion Gap 10, Glomerular Filtration Rate 47.0, Blood Urea Nitrogen 24H, Creatinine 1.21, Sodium Level 136, Potassium Level 3.0#L, Chloride Level 96L, Carbon Dioxide Level 30, Calcium Level 9.5, Thyroid Stimulating Hormone (TSH) 3.200 05/16/19 09:58: Total Creatine Kinase 122, Creatine Kinase MB 2.3, Creatine Kinase MB Relative Index 1.89, Troponin I < 0.02 CBC/BMP Laboratory Tests 05/16/19 05:38 Red Blood Count 5.02, Mean Corpuscular Volume 90.4, Mean Corpuscular Hemoglobin 30.5, Mean Corpuscular Hemoglobin Concent 33.7, Red Cell Distribution Width 12.4, Calcium Level 9.5 JENNIFER SINGH MD May 16, 2019 20:42
[2019-05-16 22:00] VITALS: BP 122/76
[2019-05-17 06:00] VITALS: BP 120/71
[2019-05-17 06:53] LABS: HEMATOCRIT 43.6 % (36.0-47.0); HEMOGLOBIN 14.4 g/dl (12.0-15.5); MEAN CORPUSCULAR HEMOGLOBIN 30.4 pg (27.0-33.0); PLATELET COUNT, AUTOMATED 195 10^3/uL (150-450); RED BLOOD COUNT 4.74 10^6/uL (4.00-5.40); WHITE BLOOD COUNT 5.7 10^3/uL (4.0-10.0)
[2019-05-17 07:23] LABS: CALCIUM LEVEL 9.8 MG/DL (8.8-10.2); CREATININE FOR GFR 1.02 MG/DL (0.55-1.30); GLOMERULAR FILTRATION RATE 57.2 (>45); MAGNESIUM LEVEL 1.9 MG/DL (1.8-2.4); POTASSIUM SERUM 3.6 MEQ/L (3.5-5.1)
[2019-05-17] MEDS: ONDANSETRON 4 MG TAB (S0181) PO SCH ×2 (08:33→20:38)
[2019-05-17] MEDS: hydroCHLOROthiazide 12.5 MG CAPSULE PO SCH (08:34)
[2019-05-17] MEDS: METOPROLOL TART 25 MG TABLET PO SCH ×3 (08:34→20:38)
[2019-05-17] MEDS: DIGOXIN 0.125 MG TAB PO SCH (08:34)
[2019-05-17] MEDS: FLUTICASONE PROP 0.05% NASAL SPRAY 16 GM (FLONASE) NARES SCH (10:31)
[2019-05-17] MEDS: ATORVASTATIN 20 MG TAB PO SCH (12:54)
[2019-05-17] MEDS: ALPRAZolam 0.25 MG TAB PO PRN ×2 (12:54→20:38)
[2019-05-17] MEDS: CYCLOBENZAPRINE 5MG TABLET PO PRN (12:54)
[2019-05-17] MEDS: VITAMIN D 1,000 INTERNATIONAL UNITS TABLET PO SCH (12:54)
[2019-05-17 14:00] VITALS: BP 122/65
[2019-05-17] MEDS ORDERED: PSEUDOEPHEDRINE 30 MG TAB PO PRN (17:30)
[2019-05-17] MEDS: RIVAROXABAN 20 MG TAB (XARELTO) PO SCH (17:49)
--- NOTE | 2019-05-17 18:48 | IPNPDOC ---
Date Seen The patient was seen on 05/17/19. Progress Note SUBJECTIVE: Patient has no significant complaints this morning. Able to ambulate with PT but noted to briefly desat to 90% with HR >100 but came down subsequently. Overall, stated that she does not feel as weak as she did previously. OBJECTIVE PHYSICAL EXAMINATION: VITAL SIGNS: Please see below. General: No acute distress, Alert Eyes: Normal sclera, EOMI, SHAMAR HENT: Atraumatic, neck supple, moist mucous membranes Cardiovascular: Normal rate Pulmonary: Clear to auscultation b/l, no wheezing GI: Soft, nontender, nondistended Skin: Warm and dry Neuro: CN grossly intact. No focal deficits. Strengths equal b/l. Psych: oriented x 3 LABORATORY DATA, IMAGING STUDIES, MICROBIOLOGY: Please see below. DVT prophylaxis ordered?: Xarelto ASSESSMENT AND PLAN: 1. pAfib - rate controlled. - c/w home med and Xarelto. - Was on Atenolol 50 mg but increased to 100 mg recently and reportedly did not tolerate and became very weak. - On metoprolol currently along with Digoxin. Discussed with covering cardiology, patient can continue current regimen and f/u with Dr. Nina as outpatient. 2. Lightheadedness - possibly 2/2 increased dose of BB along with Afib. - Now with controlled rate and change in meds, improving. c/w PT. 3. CHF - Mild b/l swelling along with BNP 3392. - Recent ECHO in march 2019 showed normal EF. - c/w gentle diuresis. VS, I&O, 24H, Fishbone Vital Signs/I&O Vital Signs Date Time Temp Pulse Resp B/P (MAP) Pulse Ox O2 Delivery O2 Flow Rate FiO2 05/17/19 17:49 88 119/64 05/17/19 14:00 96.1 20 98 05/15/19 12:08 Room Air I&O- Last 24 Hours up to 6 AM 05/17/19 06:00 Intake Total 1430 ml Balance 1430 ml Laboratory Data 24H LABS Laboratory Tests 2 05/17/19 05:25: Nucleated Red Blood Cells % (auto) 0.0, Anion Gap 8, Glomerular Filtration Rate 57.2, Blood Urea Nitrogen 21H, Creatinine 1.02, Sodium Level 139, Potassium Level 3.6, Chloride Level 99, Carbon Dioxide Level 32, Calcium Level 9.8, Magnesium Level 1.9 CBC/BMP Laboratory Tests 05/17/19 05:25 Red Blood Count 4.74, Mean Corpuscular Volume 92.0, Mean Corpuscular Hemoglobin 30.4, Mean Corpuscular Hemoglobin Concent 33.0, Red Cell Distribution Width 12.3, Calcium Level 9.8 JENNIFER SINGH MD May 17, 2019 18:48
[2019-05-17] MEDS: RAMELTEON 8 MG TAB (ROZEREM) PO SCH (20:39)
[2019-05-17] MEDS: [UNRECOGNIZED DRUG - OTHER] PO SCH (21:25)
[2019-05-17 22:00] VITALS: BP 119/79
[2019-05-17 23:25] LABS: CALCIUM LEVEL 9.4 MG/DL (8.8-10.2); CREATININE FOR GFR 1.05 MG/DL (0.55-1.30); GLOMERULAR FILTRATION RATE 55.3 (>45); MAGNESIUM LEVEL 1.6 MG/DL (1.8-2.4); POTASSIUM SERUM 3.1 MEQ/L (3.5-5.1)
[2019-05-18] MEDS: MAG SULF 1GM/100ML (MAG RUN) 1 GM in APPROPRIATE DILUENT 1 EA IV SCH ×2 (00:57→02:25)
[2019-05-18 06:00] VITALS: BP 112/71
[2019-05-18 06:03] LABS: HEMATOCRIT 39.8 % (36.0-47.0); HEMOGLOBIN 13.3 g/dl (12.0-15.5); MEAN CORPUSCULAR HEMOGLOBIN 30.2 pg (27.0-33.0); MEAN CORPUSCULAR HGB CONC 33.4 g/dl (32.0-36.5); MEAN CORPUSCULAR VOLUME 90.5 fl (80.0-96.0); PLATELET COUNT, AUTOMATED 185 10^3/uL (150-450); WHITE BLOOD COUNT 6.7 10^3/uL (4.0-10.0)
[2019-05-18 06:31] LABS: BLOOD UREA NITROGEN 17 MG/DL (7-18); CALCIUM LEVEL 9.4 MG/DL (8.8-10.2); CARBON DIOXIDE LEVEL 29 MEQ/L (21-32); CHLORIDE LEVEL 99 MEQ/L (98-107); CREATININE FOR GFR 0.89 MG/DL (0.55-1.30); GLOMERULAR FILTRATION RATE > 60.0 (>45); GLUCOSE, FASTING 104 MG/DL (70-100); POTASSIUM SERUM 3.1 MEQ/L (3.5-5.1); SODIUM LEVEL 136 MEQ/L (136-145)
[2019-05-18] MEDS ORDERED: FUROSEMIDE 20 MG/2 ML VIAL (J1940) IV SCH (09:00)
[2019-05-18] MEDS: ALPRAZolam 0.25 MG TAB PO PRN (09:01)
[2019-05-18] MEDS: FLUTICASONE PROP 0.05% NASAL SPRAY 16 GM (FLONASE) NARES SCH (09:01)
[2019-05-18] MEDS: METOPROLOL TART 25 MG TABLET PO SCH ×2 (09:02→15:31)
[2019-05-18] MEDS: ONDANSETRON 4 MG TAB (S0181) PO SCH (09:02)
[2019-05-18] MEDS: CYCLOBENZAPRINE 5MG TABLET PO PRN (09:02)
[2019-05-18] MEDS: hydroCHLOROthiazide 12.5 MG CAPSULE PO SCH (09:03)
[2019-05-18] MEDS: DIGOXIN 0.125 MG TAB PO SCH (09:03)
[2019-05-18] MEDS ORDERED: POTASSIUM CHLORIDE 10 MEQ SR TABLET PO ONE ×2 (10:00→12:00)
[2019-05-18] MEDS: ATORVASTATIN 20 MG TAB PO SCH (11:45)
[2019-05-18] MEDS: VITAMIN D 1,000 INTERNATIONAL UNITS TABLET PO SCH (11:45)
[2019-05-18 14:00] VITALS: BP 130/76
[2019-05-18] MEDS ORDERED: METO50TA7 PO (14:00)
[2019-05-18] MEDS ORDERED: DIGO0.12 PO (14:01)
[2019-05-18] MEDS ORDERED: LASI20TA3 PO (15:00)
--- NOTE | 2019-05-18 15:06 | DS.PDOC ---
Discharge Summary General Date of Admission May 17, 2019 at 19:30 Date of Discharge 05/18/19 Discharge Summary PROCEDURES PERFORMED DURING STAY: [None]. ADMITTING DIAGNOSES: 1. Lightheadedness. 2. HTN 3. Afib on Xarelto 4. hx PE 5. Pectus excavatum with heart compression DISCHARGE DIAGNOSES: 1. Lightheadedness. 2. HTN 3. Afib on Xarelto 4. hx PE 5. Pectus excavatum with heart compression COMPLICATIONS/CHIEF COMPLAINT: Atrial Fibrillation. HISTORY OF PRESENT ILLNESS: "69 years old female with past medical history over hypertension, paroxysmal atrial fibrillation on Xarelto, pulmonary emboli in 2007 in 2009, patient on anticoagulation since 2007, presented hospital with dizziness, lightheadedness and pressure feeling in her chest. Patient stated that for past few weeks she has increased lightheadedness and dizziness. In February 2019 she developed syncope, most likely orthostatic due to preceding diarrhea. She noticed that for past few weeks when she stood up she has increased lightheadedness. 4-5 days ago the dose of atenolol was increased from 50 to 100 after that patient noticed increased weakness she said '' I could barely walk''. Also note echo was done recently in March 2019 and showed normal ejection fraction, mild dilatation of the proximal ascending aorta 4.1 cm, very mild aortic valve sclerosis. Patient denies fever, chills, nausea, vomiting, diarrhea or dysuria. In emergency room patient was found to have BNP 3392, negative troponin. EKG showed atrial fibrillation." HOSPITAL COURSE: Patient admitted and ruled out ACS. Reportedly was in Afib w/RVR at some point. Medications were changed. Patient's home atenolol was changed to metoprolol and digoxin and small dose of lasix was started. Symptoms improved and patient was able to ambulate with PT without significant symptoms that she reported at home. HR controlled. Discussed with cardiology publications writer Dr. Seals, will have patient continue current course of medications and follow up with Dr. Nina as outpatient. CT Angio showed no evidence of PE but pectus excavatum with heart compression. Discussed with Cardiothoracic. Given patient's age and has had this her entire life, not likely to be contributing to her symptoms. Will discharge to f/u with PMD and cardiology. DISCHARGE MEDICATIONS: Please see below. ALLERGIES: Please see below. PHYSICAL EXAMINATION ON DISCHARGE: VITAL SIGNS: Please see below. General: No acute distress, Alert Eyes: Normal sclera, EOMI, SHAMAR HENT: Atraumatic, neck supple, moist mucous membranes Cardiovascular: Normal rate Pulmonary: Clear to auscultation b/l, no wheezing GI: Soft, nontender, nondistended Skin: Warm and dry Neuro: CN grossly intact. No focal deficits. Strengths equal b/l. Psych: oriented x 3 LABORATORY DATA: Please see below. IMAGING: CT chest angio- Impression: There are no pulmonary emboli. There are no infiltrates, effusions, masses or nodules. No adenopathy. There is pectus excavatum with the heart compressed by a the sternum and spine. Head CT- Impression: There is no subdural hematoma. There is no hemorrhage, acute infarct or mass. Mild diffuse volume loss, unchanged. Chronic sclerosis of the left mastoid air cells as described. ACTIVITY: [As tolerated]. DIET: Low sodium DISCHARGE PLAN: Stop Atenolol. Start on metoprolol, digoxin and Lasix. f/u Cardiology Dr. Nina, adjust meds as needed. f/u PMD within 1 week. DISPOSITION: Home. DISCHARGE INSTRUCTIONS: Stop Atenolol. Start on metoprolol, digoxin and Lasix. f/u Cardiology Dr. Nina, adjust meds as needed. f/u PMD within 1 week. ITEMS TO FOLLOWUP ON ON OUTPATIENT: 1. None DISCHARGE CONDITION: [Stable]. TIME SPENT ON DISCHARGE: 35 minutes. Vital Signs/I&Os Vital Signs Date Time Temp Pulse Resp B/P (MAP) Pulse Ox O2 Delivery O2 Flow Rate FiO2 05/18/19 09:03 82 05/18/19 09:02 116/73 05/18/19 06:00 96.8 20 96 05/15/19 12:08 Room Air I&O- Last 24 Hours up to 6 AM 05/18/19 06:00 Intake Total 1280 ml Balance 1280 ml Laboratory Data Labs 24H Laboratory Tests 2 05/17/19 22:57: Anion Gap 7L, Glomerular Filtration Rate 55.3, Blood Urea Nitrogen 19H, Creatinine 1.05, Sodium Level 135L, Potassium Level 3.1L, Chloride Level 100, Carbon Dioxide Level 28, Calcium Level 9.4, Magnesium Level 1.6L 05/18/19 05:39: Anion Gap 8, Glomerular Filtration Rate > 60.0, Blood Urea Nitrogen 17, Creatinine 0.89, Sodium Level 136, Potassium Level 3.1L, Chloride Level 99, Carbon Dioxide Level 29, Calcium Level 9.4, Nucleated Red Blood Cells % (auto) 0.0 CBC/BMP Laboratory Tests 05/17/19 22:57 Calcium Level 9.4 05/18/19 05:39 Calcium Level 9.4, Red Blood Count 4.40, Mean Corpuscular Volume 90.5, Mean Corpuscular Hemoglobin 30.2, Mean Corpuscular Hemoglobin Concent 33.4, Red Cell Distribution Width 12.0 Discharge Medications Scheduled Atorvastatin Calcium (Atorvastatin Calcium) 40 Mg Tab, 40 MG PO DAILY, (Reported) TAKES AT NOON Cholecalciferol (Vitamin D3) (Vitamin D3) 2,000 Unit Cap, 2,000 UNIT PO DAILY, (Reported) TAKES AT NOON Digoxin (Digoxin) 125 Mcg Tablet, 0.125 MG PO DAILY Eszopiclone (Lunesta) 3 Mg Tab, 3 MG PO QHS, (Reported) PT CAN ONLY TAKE BLUE GENERIC TABLET OR BRAND NAME Hydrochlorothiazide (Hydrochlorothiazide) 12.5 Mg Cap, 12.5 MG PO DAILY, (Reported) Metoprolol Tartrate (Metoprolol Tartrate) 50 Mg Tablet, 50 MG PO BID Rivaroxaban (Xarelto) 20 Mg Tab, 20 MG PO QPM, (Reported) Scheduled PRN Acetaminophen with Codeine (Acetaminophen-Cod #3 Tablet) 1 Tab Tab, 1 TAB PO Q6H PRN for PAIN, (Reported) Albuterol Sulfate (Ventolin Hfa) 108 Mcg/Act Aer, 2 PUFFS INH QID PRN for SOB/WHEEZING, (Reported) Alprazolam (Xanax) 0.25 Mg Tab, 0.25 MG PO TID PRN for ANXIETY/AGITATION, (Reported) Cyclobenzaprine HCl (Cyclobenzaprine HCl) 5 Mg Tablet, 5 MG PO TID PRN for MUSCLE SPASMS, (Reported) Diclofenac Sodium (Voltaren) 1 % Gel, 1 APLCT TOP BID PRN for BACK PAIN, (Reported) Ondansetron HCl (Ondansetron HCl) 4 Mg/5 Ml Melanie, 4 MG PO QID PRN for NAUSEA, (Reported) Sumatriptan Succinate (Imitrex) 50 Mg Tab, 50 MG PO PRN PRN for MIGRAINE, (Reported) Allergies Coded Allergies: morphine (Verified Adverse Reaction, Intermediate, makes her crazy, 05/15/19) JENNIFER SINGH MD May 18, 2019 15:06
[2019-05-18 15:31] VITALS: BP 115/77
== END 2019-05-18 16:45 | disposition home or self-care (01) | DRG 309 ==
LOC: M ED 12:07 → M ED INP 12:08 → M MSPAV 20:12 → OBSVTOIN 05-17 19:30
PROVIDERS: ADMIT Internal Medicine; ATTEND Student in an Organized Health Care Education/Training Program
DX: I48.0 Paroxysmal atrial fibrillation (principal); I50.30 Unspecified diastolic (congestive) heart failure; Q67.6 Pectus excavatum; I11.0 Hypertensive heart disease with heart failure; R42 Dizziness and giddiness; Z86.711 Personal history of pulmonary embolism; Z79.01 Long term (current) use of anticoagulants; Z79.899 Other long term (current) drug therapy; Z88.5 Allergy status to narcotic agent

== ENCOUNTER → 2019-05-23 | Outpatient (REF) | payer MEDICARE, OTHER ==
[~2019-05-23] MED LIST changes: +CYCL5TAB PO; +DIGO0.12 PO; +LASI20TA3 PO; +METO50TA7 PO
== END ==
LOC: M LAB REF 19:06
PROVIDERS: ATTEND Nurse Practitioner Adult Health
DX: I48.0 Paroxysmal atrial fibrillation (principal)

== ENCOUNTER → 2020-09-17 | Outpatient (CLI) | payer SELFPAY ==
[~2020-09-17] MED LIST changes: -DIGO0.12 PO; +DIGO0.123 PO; +PANT40TA29 PO; -PANT40TA3 PO
== END ==
LOC: M LABSMTC 09:28
PROVIDERS: ATTEND Pediatrics
DX: Z20.822 Contact with and (suspected) exposure to COVID-19 (principal)

== ENCOUNTER → 2021-01-09 | Outpatient (CLI) | payer MEDICARE, OTHER ==
--- NOTE | 2021-01-09 15:20 | REP ---
INDICATION: SHORTNESS OF BREATH. COMPARISON: 05/15/2019 a portable exam TECHNIQUE: PA and lateral FINDINGS: Note is again made of cardiomegaly. The lung breen are clear the pleural angles are sharp. The osseous structures are within normal limits. IMPRESSION: There is rather significant appearing cardiomegaly and somewhat flask shaped in appearance. A pericardial effusion cannot be ruled out. <Electronically signed by Godwin Kahn > 01/09/21 [id number]
== END ==
LOC: M WUC 12:28
PROVIDERS: ATTEND Nurse Practitioner Adult Health
DX: R06.02 Shortness of breath (principal)

== ENCOUNTER → 2021-03-10 | Outpatient (CLI) | payer MEDICARE, OTHER | LOC: M LABSMTC 09:16 | PROVIDERS: ATTEND Pediatrics | DX: Z11.52 Encounter for screening for COVID-19 (principal) ==

== ENCOUNTER → 2021-06-04 | Outpatient (CLI) | payer MEDICARE, OTHER ==
[~2021-06-04] MED LIST changes: +ISOVUE-370 76% 100ML VIAL As Ordered ONE
--- NOTE | 2021-06-04 09:47 | REP ---
INDICATION: WIDENING AORTA ON ECHO COMPARISON: None. TECHNIQUE: Axial contrast enhanced images from the thoracic inlet to the upper abdomen using CT angiographic technique with multiplanar re-formations. 100 ml Isovue 370 intravenous contrast material administered without complication. 3D volume rendered CT aortogram created from source images. This CT examination was performed using the following dose reduction techniques: Automated exposure control, adjustment of mA and/or kv according to the patient's size, and use of iterative reconstruction technique. FINDINGS: The ascending abdominal aorta measures 3.8 x 4.1 cm maximal diameter and tapers through the aortic arch with the descending aorta measuring 2.4 cm diameter to the level of the diaphragmatic hiatus. There is no evidence for aortic dissection or periaortic fluid/inflammatory change. No significant atherosclerotic changes are identified. Heart and pericardium are normal. Pulmonary vasculature appears normal. Bilateral lung breen are well aerated and clear. No acute consolidation, obvious suspicious nodule or mass. No effusion. No pneumothorax. Tracheobronchial tree is patent. Few calcified right hilar lymph nodes are identified suggesting prior granulomatous disease. Surrounding musculoskeletal structures are intact and without acute osseous abnormality. Limited upper abdomen demonstrates normal bilateral adrenal glands along with 4 cm simple appearing right renal cyst. IMPRESSION: 1. Ascending abdominal aorta measures up to 3.8 x 4.1 cm diameter. No evidence for aortic dissection. 2. No further acute mediastinal or pleuroparenchymal process appreciated. 3. Simple appearing 4 cm right renal cyst. <Electronically signed by Bill Peters > 06/04/21 0936
== END ==
LOC: M RAD 08:39
PROVIDERS: ATTEND Nurse Practitioner Adult Health
DX: I71.2 Thoracic aortic aneurysm, without rupture (principal); N28.1 Cyst of kidney, acquired
CPT/HCPCS: 71275; Q9967

== ENCOUNTER 2022-04-30 16:03 | Observation (INO) | payer MEDICARE, OTHER ==
[~2022-04-30] VITALS: Ht 177.8 cm; Wt 105.2 kg
[~2022-04-30 16:03] MED LIST changes: -ACET1TAB16 PO; +ACET300T48 PO; -ISOVUE-370 76% 100ML VIAL As Ordered ONE
[2022-04-30] MEDS ORDERED: atenoloL 50 MG TAB PO ONE (17:05)
[2022-04-30] MEDS ORDERED: ALPRAZolam 0.25 MG TAB PO ONE (17:05)
[2022-04-30] MEDS ORDERED: CYMB60CA4 PO (17:14)
[2022-04-30] MEDS ORDERED: BREO1INH INH (17:14)
[2022-04-30] MEDS ORDERED: ATEN50TA2 PO (17:14)
[2022-04-30] MEDS ORDERED: LISI20TA33 PO (17:14)
[2022-04-30] MEDS ORDERED: LABETALOL 100MG/20ML VIAL IV STA (17:14)
[2022-04-30] MEDS ORDERED: ESZO1TAB6 PO (17:14)
[2022-04-30] MEDS ORDERED: RIVAROXABAN 20MG TAB (XARELTO) PO SCH (18:00)
[2022-04-30 18:05] LABS: BASO % 0.4 % (0.0-1.0); EOS # 0.1 10^3/uL (0.0-0.5); EOS % 1.3 % (0.0-3.0); HEMOGLOBIN 14.9 g/dl (12.0-15.5); LYMPH # 1.2 10^3/uL (1.5-5.0); LYMPH % 17.4 % (24.0-44.0); MEAN CORPUSCULAR HEMOGLOBIN 30.3 pg (27.0-33.0); MEAN CORPUSCULAR HGB CONC 32.4 g/dl (32.0-36.5); MEAN CORPUSCULAR VOLUME 93.5 fl (80.0-96.0); MONO # 0.3 10^3/uL (0.0-0.8); MONO % 4.7 % (2.0-8.0); NEUTROPHILS # 5.4 10^3/uL (1.5-8.5); NEUTROPHILS % 75.9 % (36.0-66.0); PLATELET COUNT, AUTOMATED 199 10^3/uL (150-450); RED BLOOD COUNT 4.92 10^6/uL (4.00-5.40); WHITE BLOOD COUNT 7.1 10^3/uL (4.0-10.0)
[2022-04-30 18:34] LABS: RSV AMPLIFICATION NEGATIVE (NEGATIVE)
[2022-04-30 18:50] LABS: MB/CK RELATIVE INDEX 1.47 (< OR =4)
[2022-04-30 18:55] LABS: ALT/SGPT 47 U/L (12-78); BILIRUBIN,DIRECT 0.2 MG/DL (0.0-0.2); BILIRUBIN,TOTAL 0.8 MG/DL (0.2-1.0); BLOOD UREA NITROGEN 8 MG/DL (7-18); CALCIUM LEVEL 10.1 MG/DL (8.8-10.2); CARBON DIOXIDE LEVEL 26 MEQ/L (21-32); CHLORIDE LEVEL 105 MEQ/L (98-107); CREATININE FOR GFR 0.79 MG/DL (0.55-1.30); GLOMERULAR FILTRATION RATE > 60.0 (>39); GLUCOSE, FASTING 106 MG/DL (70-100); POTASSIUM SERUM 4.1 MEQ/L (3.5-5.1); SODIUM LEVEL 138 MEQ/L (136-145)
[2022-04-30 18:56] LABS: ALBUMIN 4.1 GM/DL (3.2-5.2); FREE T4 0.71 NG/DL (0.76-1.46); LIPASE 41 U/L (73-393); TOTAL PROTEIN 7.5 GM/DL (6.4-8.2)
[2022-04-30] MEDS ORDERED: DICL20GE TOP (19:48)
[2022-04-30] MEDS ORDERED: ONDA-83 PO (19:48)
[2022-04-30] MEDS ORDERED: MAGN64TASA PO (19:48)
[2022-04-30] MEDS ORDERED: VITA100093 PO (19:48)
[2022-04-30] MEDS ORDERED: CLAR10CA3 PO (19:48)
[2022-04-30] MEDS ORDERED: FLON1SPR NARES (19:48)
[2022-04-30] MEDS ORDERED: HOME MED LIST COMPLETE! XX SCH (19:50)
[2022-04-30] MEDS ORDERED: SUMAtriptan SUCCINATE 25 MG TAB PO PRN (20:45)
[2022-04-30] MEDS ORDERED: ONDANSETRON 4MG TAB PO PRN (20:45)
[2022-04-30] MEDS ORDERED: FLUTICASONE PROP 0.05% NASAL SPRAY 16 GM (FLONASE) NARES PRN (20:45)
[2022-04-30] MEDS ORDERED: ALPRAZolam 0.25 MG TAB PO PRN (20:45)
[2022-04-30] MEDS ORDERED: ALBUTEROL 90 MCG/ACT 8GM HFA INHALER INH PRN (20:45)
[2022-04-30] MEDS ORDERED: **hydrALAZINE** 10 MG TAB PO PRN (20:50)
[2022-04-30] MEDS: ASPIRIN 81 MG CHEW TABLET PO SCH ×3 (20:50→21:51)
[2022-04-30] MEDS ORDERED: ATORVASTATIN 20 MG TAB PO SCH (21:00)
[2022-05-01] MEDS: ACETAMINOPH W/CODEINE #3 TAB UD PO PRN ×2 (04:49→12:26)
[2022-05-01] MEDS: ASPIRIN 81 MG CHEW TABLET PO SCH (08:09)
[2022-05-01] MEDS ORDERED: AMLO10TA PO (08:35)
[2022-05-01] MEDS ORDERED: SELF1KIT MC (08:35)
[2022-05-01] MEDS ORDERED: LISI30TA4 PO (08:35)
[2022-05-01] MEDS ORDERED: atenoloL 50 MG TAB PO SCH (09:00)
[2022-05-01] MEDS ORDERED: DULoxetine 30MG CAPSULE (CYMBALTA) PO SCH (09:00)
[2022-05-01 12:15] VITALS: BP 171/90
[2022-05-01 12:38] VITALS: BP 146/80
== END 2022-05-01 13:45 | disposition home or self-care (01) ==
LOC: M ED 16:03 → M ED INP 16:04
PROVIDERS: ADMIT Internal Medicine; ATTEND Internal Medicine
DX: I16.0 Hypertensive urgency (principal); R07.89 Other chest pain; E66.9 Obesity, unspecified; G43.909 Migraine, unspecified, not intractable, without status migrainosus; I48.20 Chronic atrial fibrillation, unspecified; I10 Essential (primary) hypertension; Z79.01 Long term (current) use of anticoagulants; Z79.899 Other long term (current) drug therapy; Z88.5 Allergy status to narcotic agent
CPT/HCPCS: 36415; 70450; 71046; 80048; 80076; 82550; 82553; 83690; 84439; 84443; 84484; 85025; 87631; 93005; 93041; 94760; 96374; 99285; G0378

== ENCOUNTER → 2023-06-01 | Outpatient (CLI) | payer MEDICARE, OTHER ==
[~2023-06-01] MED LIST changes: +AMLO10TA PO; +BREO1INH INH; +CLAR10CA3 PO; +CYMB60CA4 PO; +DICL20GE TOP; +ESZO1TAB6 PO; +FLON1SPR NARES; +LISI20TA33 PO; +LISI30TA4 PO; +MAGN64TASA PO; +ONDA-83 PO; +SELF1KIT MC; +VITA100093 PO
[2023-06-01 13:50] LABS: BASO % 0.7 % (0.0-1.0); EOS # 0.2 10^3/uL (0.0-0.5); EOS % 4.1 % (0.0-3.0); HEMATOCRIT 44.8 % (36.0-47.0); HEMOGLOBIN 14.7 g/dl (12.0-15.5); LYMPH # 2.1 10^3/uL (1.5-5.0); MEAN CORPUSCULAR HEMOGLOBIN 31.2 pg (27.0-33.0); MEAN CORPUSCULAR HGB CONC 32.8 g/dl (32.0-36.5); MEAN CORPUSCULAR VOLUME 95.1 fl (80.0-96.0); MONO # 0.5 10^3/uL (0.0-0.8); MONO % 8.2 % (2.0-8.0); NEUTROPHILS % 50.8 % (36.0-66.0); PLATELET COUNT, AUTOMATED 204 10^3/uL (150-450); RED BLOOD COUNT 4.71 10^6/uL (4.00-5.40); WHITE BLOOD COUNT 5.8 10^3/uL (4.0-10.0)
[2023-06-01 14:19] LABS: ALBUMIN 3.8 G/DL (3.2-5.2); CALCIUM LEVEL 9.3 MG/DL (8.3-10.6); GLOMERULAR FILTRATION RATE 57.9 (>39); MAGNESIUM LEVEL 1.8 MG/DL (1.8-2.4); PHOSPHORUS LEVEL 4.4 MG/DL (2.4-5.1); POTASSIUM SERUM 5.7 MMOL/L (3.5-5.1)
== END ==
LOC: M LAB 13:05
PROVIDERS: ATTEND Internal Medicine Cardiovascular Disease
DX: R06.02 Shortness of breath (principal)

== ENCOUNTER → 2023-12-29 | Outpatient (CLI) | payer MEDICARE, OTHER ==
[~2023-12-29] MED LIST changes: -LUNE3TAB36 PO; +LUNE3TAB50 PO
== END ==
LOC: M PLAIMG 10:36
PROVIDERS: ATTEND Internal Medicine Cardiovascular Disease
DX: I71.21 Aneurysm of the ascending aorta, without rupture (principal); I11.9 Hypertensive heart disease without heart failure

== ENCOUNTER 2024-03-31 11:41 | Emergency (ER) | payer MEDICARE, OTHER ==
[~2024-03-31] VITALS: Ht 177.8 cm; Wt 106.4 kg
[2024-03-31 12:48] LABS: BASO % 0.4 % (0.0-1.0); EOS # 0.1 10^3/uL (0.0-0.5); EOS % 0.8 % (0.0-3.0); HEMATOCRIT 48.7 % (36.0-47.0); HEMOGLOBIN 16.1 g/dl (12.0-15.5); LYMPH # 1.2 10^3/uL (1.5-5.0); LYMPH % 14.9 % (24.0-44.0); MEAN CORPUSCULAR HEMOGLOBIN 31.6 pg (27.0-33.0); MEAN CORPUSCULAR HGB CONC 33.1 g/dl (32.0-36.5); MEAN CORPUSCULAR VOLUME 95.7 fl (80.0-96.0); MONO # 0.4 10^3/uL (0.0-0.8); MONO % 4.2 % (2.0-8.0); NEUTROPHILS # 6.6 10^3/uL (1.5-8.5); NEUTROPHILS % 79.3 % (36.0-66.0); PLATELET COUNT, AUTOMATED 215 10^3/uL (150-450); RED BLOOD COUNT 5.09 10^6/uL (4.00-5.40); WHITE BLOOD COUNT 8.3 10^3/uL (4.0-10.0)
[2024-03-31] MEDS ORDERED: ISOVUE-370 76% 100ML VIAL As Ordered ONE (12:56)
[2024-03-31 14:02] LABS: INR 1.45; PROTHROMBIN TIME 17.2 SECONDS (12.5-14.5)
[2024-03-31 14:32] LABS: ALBUMIN 4.3 G/DL (3.2-5.2); BILIRUBIN,DIRECT 0.4 MG/DL (<0.4); BILIRUBIN,TOTAL 1.2 MG/DL (0.3-1.2); CALCIUM LEVEL 10.3 MG/DL (8.3-10.6); CK-MB VALUE MASS 5.3 NG/ML (<3.6); CREATININE FOR GFR 1.08 MG/DL (0.55-1.30); GLOMERULAR FILTRATION RATE 52.8 (>39); MB/CK RELATIVE INDEX 3.5 (< OR =4); TOTAL PROTEIN 7.5 G/DL (5.7-8.2)
[2024-03-31 19:45] VITALS: BP 142/70; TEMP 98.4; O2SAT 99
== END 2024-03-31 19:55 | disposition home or self-care (01) ==
LOC: M ED 11:41
DX: R07.9 Chest pain, unspecified (principal); I48.92 Unspecified atrial flutter; R00.1 Bradycardia, unspecified; K76.89 Other specified diseases of liver; J98.11 Atelectasis; N28.1 Cyst of kidney, acquired; I10 Essential (primary) hypertension; J45.909 Unspecified asthma, uncomplicated; F41.9 Anxiety disorder, unspecified; Z86.79 Personal history of other diseases of the circulatory system; Z88.5 Allergy status to narcotic agent; Z79.52 Long term (current) use of systemic steroids; Z79.811 Long term (current) use of aromatase inhibitors; Z79.83 Long term (current) use of bisphosphonates; Z79.02 Long term (current) use of antithrombotics/antiplatelets; Z79.899 Other long term (current) drug therapy
CPT/HCPCS: 36415; 71045; 71275; 80047; 80048; 80076; 82550; 82553; 83690; 84484; 85025; 85610; 93005; 93041; 94760; 99285; Q9967

== ENCOUNTER 2024-05-10 08:12 | Day surgery (SDC) | payer MEDICARE, OTHER ==
[~2024-05-10] VITALS: Ht 177.8 cm; Wt 108.4 kg
[~2024-05-10 08:12] MED LIST changes: +CHLO125TA PO; +FLEC25TA PO; +LISI10TA22 PO; +SEMA0.5P; +SPIR-10 PO
[2024-05-10] MEDS: NS 1,000 ML IV ONE (08:40)
[2024-05-10] MEDS ORDERED: fentaNYL 100 MCG/2 ML INJECTION As Ordered ONE (09:13)
[2024-05-10] MEDS ORDERED: LIDOCAINE 2% 100MG/5ML SDV (FOR ANES.) As Ordered ONE (09:18)
[2024-05-10] MEDS ORDERED: propofoL 200 MG/20 ML VIAL As Ordered ONE (09:18)
[2024-05-10] MEDS ORDERED: MIDAZOLAM INJ 2MG/2ML VIAL As Ordered ONE (09:19)
[2024-05-10 10:10] VITALS: TEMP 97.9
[2024-05-10 10:30] VITALS: BP 117/67; O2SAT 100
== END 2024-05-10 10:30 | disposition home or self-care (01) ==
LOC: M OPP 08:12
PROVIDERS: ATTEND Internal Medicine Gastroenterology
DX: Z12.11 Encounter for screening for malignant neoplasm of colon (principal); Z86.010 Personal history of colon polyps; D12.2 Benign neoplasm of ascending colon; K63.5 Polyp of colon; K22.89 Other specified disease of esophagus; K31.89 Other diseases of stomach and duodenum; I48.91 Unspecified atrial fibrillation; Z79.01 Long term (current) use of anticoagulants; Z79.02 Long term (current) use of antithrombotics/antiplatelets; Z79.1 Long term (current) use of non-steroidal anti-inflammatories (NSAID); Z79.51 Long term (current) use of inhaled steroids; Z79.891 Long term (current) use of opiate analgesic; Z79.899 Other long term (current) drug therapy; Z88.5 Allergy status to narcotic agent
CPT/HCPCS: 43239; 45380; 88305; J2250; J3010

== ENCOUNTER → 2024-06-08 | Outpatient (CLI) | payer MEDICARE, OTHER | LOC: M WUC 11:04 | PROVIDERS: ATTEND Nurse Practitioner Family | DX: R05.9 Cough, unspecified (principal) ==

== ENCOUNTER 2024-06-15 14:21 | Inpatient (IN) | payer MEDICARE, OTHER ==
[~2024-06-15] VITALS: Ht 167.6 cm; Wt 102.3 kg
[2024-06-15 14:50] LABS: BASO % 0.3 % (0.0-1.0); EOS # 0.2 10^3/uL (0.0-0.5); EOS % 1.4 % (0.0-3.0); LYMPH # 2.1 10^3/uL (1.5-5.0); LYMPH % 15.8 % (24.0-44.0); MEAN CORPUSCULAR HEMOGLOBIN 30.7 pg (27.0-33.0); MEAN CORPUSCULAR HGB CONC 33.5 g/dl (32.0-36.5); MEAN CORPUSCULAR VOLUME 91.7 fl (80.0-96.0); MONO # 0.8 10^3/uL (0.0-0.8); MONO % 6.2 % (2.0-8.0); NEUTROPHILS # 10.1 10^3/uL (1.5-8.5); NEUTROPHILS % 75.3 % (36.0-66.0); PLATELET COUNT, AUTOMATED 301 10^3/uL (150-450); RED BLOOD COUNT 5.67 10^6/uL (4.00-5.40); WHITE BLOOD COUNT 13.4 10^3/uL (4.0-10.0)
[2024-06-15 14:56] LABS: HEMOGLOBIN 17.4 g/dl (12.0-15.5)
[2024-06-15 15:03] LABS: INR 1.4; PARTIAL THROMBOPLASTIN TIME 32.7 SECONDS (24.8-34.2); PROTHROMBIN TIME 16.7 SECONDS (12.5-14.5)
[2024-06-15 15:12] LABS: ALBUMIN 3.8 G/DL (3.2-5.2); BILIRUBIN,DIRECT 0.2 MG/DL (<0.4); BILIRUBIN,TOTAL 0.9 MG/DL (0.3-1.2); CALCIUM LEVEL 10.9 MG/DL (8.3-10.6); CREATININE FOR GFR 1.15 MG/DL (0.55-1.30); GLOMERULAR FILTRATION RATE 49.1 (>39); POTASSIUM SERUM 4.9 MMOL/L (3.5-5.1); TOTAL PROTEIN 7.3 G/DL (5.7-8.2)
[2024-06-15 15:13] LABS: CK-MB VALUE MASS 1.3 NG/ML (<3.6)
[2024-06-15 15:16] LABS: FREE T4 1.51 NG/DL (0.89-1.76); THYROID STIMULATING HORMONE 3.031 uIU/ML (0.55-4.78)
[2024-06-15 15:17] LABS: MB/CK RELATIVE INDEX 2.54 (< OR =4)
[2024-06-15] MEDS ORDERED: ISOVUE-370 76% 100ML VIAL As Ordered ONE (15:49)
[2024-06-15 16:29] LABS: CK-MB VALUE MASS 1.2 NG/ML (<3.6)
[2024-06-15 16:37] LABS: MB/CK RELATIVE INDEX 2.55 (< OR =4)
[2024-06-15] MEDS ORDERED: FLECAINIDE 50MG TABLET PO STA (18:11)
[2024-06-15] MEDS ORDERED: PILL CUTTER 1 EACH XX PRN (18:20)
[2024-06-15] MEDS: FLECAINIDE 50MG TABLET PO STA (18:21)
[2024-06-15 18:42] LABS: CK-MB VALUE MASS < 1.0 NG/ML (<3.6); CPK CREATINE PHOSPHOKINASE 77 U/L (34-145); MB/CK RELATIVE INDEX 1.29 (< OR =4)
[2024-06-15] MEDS ORDERED: FLEC25TA PO (22:20)
[2024-06-16] MEDS ORDERED: AMLO1TAB25 PO (02:00)
[2024-06-16] MEDS ORDERED: D200CAP3 PO (02:00)
[2024-06-16] MEDS ORDERED: FLEC50HA PO (02:00)
[2024-06-16] MEDS ORDERED: DICL20GE TOP (02:01)
[2024-06-16] MEDS ORDERED: HOME MED LIST COMPLETE! XX SCH (02:05)
[2024-06-16] MEDS ORDERED: LORATADINE 10 MG TAB PO PRN (02:40)
[2024-06-16] MEDS ORDERED: ACETAMINOPHEN 325 MG TAB PO PRN (03:30)
[2024-06-16] MEDS: DULoxetine 30MG CAPSULE (CYMBALTA) PO SCH (04:17)
[2024-06-16] MEDS: RIVAROXABAN 20MG TAB (XARELTO) PO SCH (04:18)
[2024-06-16] MEDS: IPRATROPIUM 0.5MG/ALBUTEROL 2.5MG INH SOL UD 3ML (DUONEB) NEB SCH (04:34)
[2024-06-16] MEDS: AUGMENTIN 875 MG TAB PO SCH (05:59)
[2024-06-16] MEDS: predniSONE 20 MG TAB PO SCH (05:59)
[2024-06-16 06:12] LABS: HEMATOCRIT 53.7 % (36.0-47.0); HEMOGLOBIN 17.6 g/dl (12.0-15.5); MEAN CORPUSCULAR HEMOGLOBIN 30.6 pg (27.0-33.0); MEAN CORPUSCULAR HGB CONC 32.8 g/dl (32.0-36.5); MEAN CORPUSCULAR VOLUME 93.4 fl (80.0-96.0); PLATELET COUNT, AUTOMATED 272 10^3/uL (150-450); RED BLOOD COUNT 5.75 10^6/uL (4.00-5.40); WHITE BLOOD COUNT 13.3 10^3/uL (4.0-10.0)
[2024-06-16 06:38] LABS: CALCIUM LEVEL 10.4 MG/DL (8.3-10.6); CREATININE FOR GFR 1.11 MG/DL (0.55-1.30); GLOMERULAR FILTRATION RATE 51.2 (>39); POTASSIUM SERUM 3.8 MMOL/L (3.5-5.1)
[2024-06-16] MEDS: SPIRONOLACTONE 12.5MG PER 1/2 TABLET PO SCH (08:20)
[2024-06-16] MEDS: atenoloL 50 MG TAB PO SCH (08:21)
[2024-06-16] MEDS: CHLORTHALIDONE 12.5MG PER 1/2 TABLET PO SCH (09:48)
[2024-06-16] MEDS: FLECAINIDE 50MG TABLET PO SCH (09:48)
[2024-06-16] MEDS: ALPRAZolam 0.25 MG TAB PO PRN (11:31)
[2024-06-16 16:15] VITALS: BP 121/72; TEMP 97.7; O2SAT 98
[2024-06-16 16:20] VITALS: BP 129/72
[2024-06-16 16:45] VITALS: BP 132/94
[2024-06-16] MEDS: atenoloL 50 MG TAB PO ONE (16:55)
[2024-06-16] MEDS: FLECAINIDE 50MG TABLET PO ONE (16:56)
[2024-06-16 20:29] VITALS: BP 102/63; TEMP 97.3; O2SAT 94
[2024-06-16] MEDS ORDERED: atenoloL 50 MG TAB PO SCH (21:00)
[2024-06-16] MEDS: ACETAMINOPH W/CODEINE #3 TAB UD PO PRN (21:34)
[2024-06-16] MEDS: ATORVASTATIN 20 MG TAB PO SCH (21:34)
[2024-06-17] VITALS (8 sets, daily range): BP systolic 102–170; BP diastolic 61–78; TEMP 96.6–97.4; O2SAT 95–99
[2024-06-17 06:16] LABS: HEMATOCRIT 47.6 % (36.0-47.0); HEMOGLOBIN 15.8 g/dl (12.0-15.5); MEAN CORPUSCULAR HEMOGLOBIN 31.4 pg (27.0-33.0); MEAN CORPUSCULAR HGB CONC 33.2 g/dl (32.0-36.5); MEAN CORPUSCULAR VOLUME 94.6 fl (80.0-96.0); PLATELET COUNT, AUTOMATED 209 10^3/uL (150-450); RED BLOOD COUNT 5.03 10^6/uL (4.00-5.40); WHITE BLOOD COUNT 12.1 10^3/uL (4.0-10.0)
[2024-06-17 06:28] LABS: BLOOD UREA NITROGEN 29 MG/DL (9-23); CARBON DIOXIDE LEVEL 26 MMOL/L (20-31); CHLORIDE LEVEL 102 MMOL/L (98-107); CREATININE FOR GFR 0.92 MG/DL (0.55-1.30); GLOMERULAR FILTRATION RATE > 60.0 (>39); GLUCOSE, FASTING 112 MG/DL (74-106); MAGNESIUM LEVEL 1.9 MG/DL (1.8-2.4); SODIUM LEVEL 134 MMOL/L (136-145)
[2024-06-17] MEDS ORDERED: FLECAINIDE 50MG TABLET PO SCH (09:00)
[2024-06-17] MEDS: DIGOXIN INJ 0.5 MG/2 ML AMP IV ONE (09:04)
[2024-06-17] MEDS ORDERED: MIDODRINE 5 MG TAB PO SCH (10:25)
[2024-06-17] MEDS ORDERED: NS 500 ML IV ONE (11:00)
[2024-06-17] MEDS ORDERED: NITROGLYCERIN 0.4MG SUBL TABLET SL PRN (11:05)
[2024-06-17] MEDS ORDERED: METOPROLOL 5 MG/5 ML VIAL IV ONE (11:07)
[2024-06-17] MEDS: NITROGLYCERIN 0.4MG SUBL TABLET SL STA (11:14)
[2024-06-17] MEDS: METOPROLOL 5 MG/5 ML VIAL IV STA (11:34)
[2024-06-17 11:53] LABS: CK-MB VALUE MASS 2.5 NG/ML (<3.6)
[2024-06-17 11:56] LABS: MB/CK RELATIVE INDEX 3.42 (< OR =4)
[2024-06-17 17:25] LABS: CK-MB VALUE MASS 2.4 NG/ML (<3.6); MB/CK RELATIVE INDEX 2.55 (< OR =4)
[2024-06-17] MEDS: atenoloL 50 MG TAB PO SCH (20:12)
[2024-06-17] MEDS: FLECAINIDE 50MG TABLET PO SCH (20:37)
[2024-06-17 23:47] LABS: CK-MB VALUE MASS 2.6 NG/ML (<3.6)
[2024-06-17 23:49] LABS: MB/CK RELATIVE INDEX 4.33 (< OR =4)
[2024-06-18] VITALS (8 sets, daily range): BP systolic 107–129; BP diastolic 67–74; TEMP 96.9–98.5; O2SAT 96–100
[2024-06-18 06:41] LABS: HEMATOCRIT 45.9 % (36.0-47.0); HEMOGLOBIN 15.1 g/dl (12.0-15.5); MEAN CORPUSCULAR HEMOGLOBIN 31.2 pg (27.0-33.0); MEAN CORPUSCULAR HGB CONC 32.9 g/dl (32.0-36.5); MEAN CORPUSCULAR VOLUME 94.8 fl (80.0-96.0); PLATELET COUNT, AUTOMATED 208 10^3/uL (150-450); RED BLOOD COUNT 4.84 10^6/uL (4.00-5.40); WHITE BLOOD COUNT 10.1 10^3/uL (4.0-10.0)
[2024-06-18 07:11] LABS: BLOOD UREA NITROGEN 22 MG/DL (9-23); CARBON DIOXIDE LEVEL 29 MMOL/L (20-31); CHLORIDE LEVEL 98 MMOL/L (98-107); CREATININE FOR GFR 0.81 MG/DL (0.55-1.30); GLOMERULAR FILTRATION RATE > 60.0 (>39); GLUCOSE, FASTING 94 MG/DL (74-106); MAGNESIUM LEVEL 1.7 MG/DL (1.8-2.4); POTASSIUM SERUM 4.2 MMOL/L (3.5-5.1); SODIUM LEVEL 134 MMOL/L (136-145)
[2024-06-18 07:33] LABS: DIGOXIN LEVEL 0.7 NG/ML (0.8-2.0)
[2024-06-18] MEDS: MAG SULF 1GM/100ML (MAG RUN) 1 GM in IV 1 EA IV SCH (16:15)
[2024-06-19 05:06] VITALS: BP 126/78; TEMP 97.6; O2SAT 98
[2024-06-19 06:29] LABS: HEMATOCRIT 44.5 % (36.0-47.0); HEMOGLOBIN 14.4 g/dl (12.0-15.5); MEAN CORPUSCULAR HEMOGLOBIN 30.5 pg (27.0-33.0); MEAN CORPUSCULAR HGB CONC 32.4 g/dl (32.0-36.5); MEAN CORPUSCULAR VOLUME 94.3 fl (80.0-96.0); PLATELET COUNT, AUTOMATED 204 10^3/uL (150-450); RED BLOOD COUNT 4.72 10^6/uL (4.00-5.40); WHITE BLOOD COUNT 11.5 10^3/uL (4.0-10.0)
[2024-06-19 06:46] LABS: BLOOD UREA NITROGEN 23 MG/DL (9-23); CALCIUM LEVEL 10.5 MG/DL (8.3-10.6); CARBON DIOXIDE LEVEL 33 MMOL/L (20-31); CHLORIDE LEVEL 99 MMOL/L (98-107); CREATININE FOR GFR 0.87 MG/DL (0.55-1.30); GLOMERULAR FILTRATION RATE > 60.0 (>39); GLUCOSE, FASTING 102 MG/DL (74-106); MAGNESIUM LEVEL 1.9 MG/DL (1.8-2.4); POTASSIUM SERUM 4.9 MMOL/L (3.5-5.1); SODIUM LEVEL 135 MMOL/L (136-145)
== END 2024-06-19 10:10 | disposition home or self-care (01) | DRG 309 ==
LOC: M ED 14:21 → M ED INP 06-16 03:29 → OBSVTOIN 06-16 09:52 → M PCU 06-16 16:03
PROVIDERS: ADMIT Student in an Organized Health Care Education/Training Program; ATTEND General Practice
DX: I48.91 Unspecified atrial fibrillation (principal); I50.32 Chronic diastolic (congestive) heart failure; E87.1 Hypo-osmolality and hyponatremia; I95.1 Orthostatic hypotension; I11.0 Hypertensive heart disease with heart failure; J45.909 Unspecified asthma, uncomplicated; Z86.16 Personal history of COVID-19; Z79.899 Other long term (current) drug therapy; Z88.5 Allergy status to narcotic agent; G89.29 Other chronic pain

== ENCOUNTER → 2024-06-30 | Outpatient (CLI) | payer MEDICARE, OTHER ==
[~2024-06-30] MED LIST changes: +AMLO1TAB25 PO; -CYCL5TAB PO; +CYCL5TAB4 PO; +D200CAP3 PO; +FLEC50HA PO
== END ==
LOC: M EKG 09:34
PROVIDERS: ATTEND Internal Medicine Cardiovascular Disease
DX: I48.0 Paroxysmal atrial fibrillation (principal)

== ENCOUNTER → 2024-07-06 | Outpatient (REF) | payer MEDICARE, OTHER | LOC: M LAB REF 11:58 | PROVIDERS: ATTEND Nurse Practitioner Adult Health | DX: I48.0 Paroxysmal atrial fibrillation (principal) ==

== ENCOUNTER → 2024-08-03 | Outpatient (CLI) | payer MEDICARE, OTHER | LOC: M SLEEP HO 07-25 10:46 | PROVIDERS: ATTEND Internal Medicine Cardiovascular Disease | DX: G47.9 Sleep disorder, unspecified (principal); J98.4 Other disorders of lung | CPT/HCPCS: G0399 ×2 ==

== ENCOUNTER → 2024-10-22 | Outpatient (CLI) | payer MEDICARE, OTHER ==
[2024-10-22 13:09] LABS: BASO % 0.6 % (0.0-1.0); EOS # 0.3 10^3/uL (0.0-0.5); EOS % 4.6 % (0.0-3.0); HEMATOCRIT 40.4 % (36.0-47.0); HEMOGLOBIN 13.1 g/dl (12.0-15.5); LYMPH % 18.9 % (24.0-44.0); MEAN CORPUSCULAR HEMOGLOBIN 30.2 pg (27.0-33.0); MEAN CORPUSCULAR HGB CONC 32.4 g/dl (32.0-36.5); MEAN CORPUSCULAR VOLUME 93.1 fl (80.0-96.0); MONO # 0.4 10^3/uL (0.0-0.8); MONO % 7.6 % (2.0-8.0); NEUTROPHILS # 3.7 10^3/uL (1.5-8.5); NEUTROPHILS % 68.1 % (36.0-66.0); PLATELET COUNT, AUTOMATED 165 10^3/uL (150-450); RED BLOOD COUNT 4.34 10^6/uL (4.00-5.40); WHITE BLOOD COUNT 5.4 10^3/uL (4.0-10.0)
[2024-10-22 13:47] LABS: ALBUMIN 3.6 G/DL (3.2-5.2); ALKALINE PHOSPHATASE 118 U/L (35-104); ALT/SGPT 25 U/L (7.0-40); AST/SGOT 29 U/L (<34); BILIRUBIN,TOTAL 0.6 MG/DL (0.3-1.2); BLOOD UREA NITROGEN 13 MG/DL (9-23); CALCIUM LEVEL 9.4 MG/DL (8.3-10.6); CARBON DIOXIDE LEVEL 30 MMOL/L (20-31); CHLORIDE LEVEL 104 MMOL/L (98-107); DIGOXIN LEVEL 1.7 NG/ML (0.8-2.0); GLOMERULAR FILTRATION RATE > 60.0 (>39); GLUCOSE, FASTING 107 MG/DL (74-106); MAGNESIUM LEVEL 1.7 MG/DL (1.8-2.4); POTASSIUM SERUM 4.1 MMOL/L (3.5-5.1); SODIUM LEVEL 142 MMOL/L (136-145); TOTAL PROTEIN 6.7 G/DL (5.7-8.2)
== END ==
LOC: M LAB 12:31
DX: I48.19 Other persistent atrial fibrillation (principal)

== ENCOUNTER → 2025-03-20 | Outpatient (REF) | payer MEDICARE, OTHER ==
[~2025-03-20] MED LIST changes: +AMLO-751 PO; -AMLO10TA PO
== END ==
LOC: M LAB REF 13:28
PROVIDERS: ATTEND Nurse Practitioner Adult Health
DX: Z79.899 Other long term (current) drug therapy (principal)

== ENCOUNTER → 2025-04-26 | Outpatient (CLI) | payer MEDICARE, OTHER ==
[~2025-04-26] MED LIST changes: +HYDR12.510 PO; -HYDR12CA PO; +ISOVUE-370 76% 100 ML VIAL ONE
== END ==
LOC: M PLAIMG 09:24
PROVIDERS: ATTEND Nurse Practitioner Adult Health
DX: R10.9 Unspecified abdominal pain (principal); K59.00 Constipation, unspecified; N13.30 Unspecified hydronephrosis; K76.0 Fatty (change of) liver, not elsewhere classified
CPT/HCPCS: 74177; Q9967

== ENCOUNTER → 2025-05-08 | Outpatient (CLI) | payer MEDICARE, OTHER ==
[~2025-05-08] MED LIST changes: -ISOVUE-370 76% 100 ML VIAL ONE
== END ==
LOC: M EKG 09:05
PROVIDERS: ATTEND Registered Nurse
DX: I48.0 Paroxysmal atrial fibrillation (principal)